=== PATIENT | female | born 1960 | race Native Hawaiian/Other Pacific Islander ===

== ENCOUNTER 2022-09-16 06:04 | Day surgery (SDC) | payer OTHER ==
[2022-09-16] MEDS ORDERED: Lactated Ringers 1,000 ML IV SCH (06:30)
[2022-09-16] MEDS ORDERED: Lactated Ringers 1,000 ML IV ONE (06:53)
[2022-09-16] MEDS ORDERED: DIPRIVAN 200 MG/20 ML IV ONE ×3 (07:58→08:31)
[2022-09-16] MEDS ORDERED: Xylocaine-Mpf 2% 5 Ml Vial ONE (07:58)
[2022-09-16] MEDS ORDERED: ATROPINE SULFATE 1MG ONE (08:20)
--- NOTE | 2022-09-16 09:22 | OP ---
SURGERY DATE/TIME: 09/16/2022 0758 PREOPERATIVE DIAGNOSIS: Positive Cologuard test. POSTOPERATIVE DIAGNOSIS: Polyp in the ascending colon. PROCEDURE: Colonoscopy with hot snare polypectomy. SURGEON: Dr. Doc Garza. ANESTHESIA: MAC. Medications given by anesthesia department. HISTORY: The patient is a 62-year-old white female presents now for positive Cologuard examination. The patient was felt the need to have endoscopic evaluation. She was appraised of the risks of the procedure including the risk of perforation, phlebitis, untoward reaction to medication, bleeding and missed lesions. The patient verbalized her understanding and desired to have the procedure performed. DESCRIPTION OF PROCEDURE: The patient was given the medications by the anesthesia department. She had continuous pulse oximetry, ECG monitoring, intermittent blood pressure monitoring during the examination. She was placed in the left lateral decubitus position. A digital rectal examination was performed and revealed normal anal sphincter tone and no masses. The flexible Olympus pediatric colonoscope was used to intubate the rectum. A view of the colon was developed sequentially to the cecum. Upon insertion and withdrawal was noted a polyp in the ascending colon that was somewhat pedunculated. It was removed using hot polypectomy snare and retrieved for pathologic evaluation. No other mucosal lesions were encountered. The scope was removed from the patient who tolerated the procedure well and was sent back to outpatient recovery in good condition. The prep was noted to be fair to good. The examination was noted be technically challenging.
[2022-09-16 09:45] VITALS: BP 108/42; PULSE 65; O2SAT 98
== END 2022-09-16 09:46 | disposition home or self-care (01) ==
LOC: SDC 06:04
PROVIDERS: ATTEND Family Medicine
DX: D12.2 Benign neoplasm of ascending colon (principal); R19.5 Other fecal abnormalities
CPT/HCPCS: J0461; J2704